=== PATIENT | male | born 1950 | race Caucasian/White ===

== ENCOUNTER 2024-11-08 11:44 | Day surgery (SDC) | payer MEDICARE, OTHER ==
[~2024-11-08] VITALS: Ht 177.8 cm; Wt 144.9 kg
[2024-11-08] MEDS ORDERED: IBUP200 (12:19)
[2024-11-08] MEDS ORDERED: GABA300 (12:19)
[2024-11-08] MEDS ORDERED: TURMERIC ROOT5000 GM (12:19)
[2024-11-08] MEDS ORDERED: Lactated Ringer's 1,000 ML IV ONE ×2 (13:24→13:59)
[2024-11-08] MEDS ORDERED: propofoL 50 ML IV ONE (14:22)
== END 2024-11-08 15:37 | disposition home or self-care (01) ==
LOC: ORSCSDS 11:44
PROVIDERS: Surgery
PROC: 0DBP8ZX Excision of Rectum, Via Natural or Artificial Opening Endoscopic, Diagnostic (ICD-10-PCS; principal; 2024-11-08 13:00)
PROC: 0DBN8ZX Excision of Sigmoid Colon, Via Natural or Artificial Opening Endoscopic, Diagnostic (ICD-10-PCS; principal; 2024-11-08 13:00)
DX: Z12.11 Encounter for screening for malignant neoplasm of colon (principal); K63.5 Polyp of colon; K62.1 Rectal polyp; K57.30 Diverticulosis of large intestine without perforation or abscess without bleeding; F41.9 Anxiety disorder, unspecified; I10 Essential (primary) hypertension; F32.A Depression, unspecified; G47.33 Obstructive sleep apnea (adult) (pediatric); D69.6 Thrombocytopenia, unspecified; E66.01 Morbid (severe) obesity due to excess calories; Z68.42 Body mass index [BMI] 45.0-49.9, adult; Z79.899 Other long term (current) drug therapy; Z87.891 Personal history of nicotine dependence
CPT/HCPCS: 88305; J2704; J7120